=== PATIENT | female | born 1980 | race Native Hawaiian/Other Pacific Islander ===

== ENCOUNTER 2021-07-09 17:30 | Emergency (ER) | payer BC, OTHER ==
[2021-07-09 17:48] VITALS: TEMP 98.9
[2021-07-09 18:00] LABS: Appearance,Urine Clear (Clear); Bilirubin,Urine Negative (Negative); Blood,Urine Negative (Negative); Color,Urine Light Yellow; Glucose,Urine (UA) Negative (Negative); Ketones,Urine Negative (Negative); Leukocyte Esterase,Urine Negative (Negative); Nitrite,Urine Negative (Negative); PH, Urine 6.5 (5.0-8.0); Protein,Urine Negative (Negative); Specific Gravity,Urine 1.002 (1.001-1.035); Urobilinogen,Urine <2.0 mg/dL (<2.0)
[2021-07-09 18:16] LABS: Anisocytosis Slight; Basophils % (A) 0 %; Eosinophils # (A) 0.1 k/uL (0-0.7); Eosinophils % (A) 2 %; HGB 10.1 gm/dL (11.4-16.0); Hypochromasia Moderate; Lymphocytes # (A) 2.3 k/uL (1.0-4.8); Lymphocytes % (A) 35 %; MCH 25.4 pg (25.0-35.0); MCHC 31.5 g/dL (31.0-37.0); MCV 80.7 fL (80.0-100.0); Mean Platelet Volume 7.7; Microcytosis Slight; Monocytes # (A) 0.4 k/uL (0-1.0); Monocytes % (A) 6 %; Neutrophils # (A) 3.7 k/uL (1.3-7.7); Neutrophils % (A) 56 %; Platelet Count 388 k/uL (150-450); RBC 3.97 m/uL (3.80-5.40); RDW 18.4 % (11.5-15.5); WBC 6.7 k/uL (3.8-10.6)
[2021-07-09 18:25] LABS: ALT 7 U/L (4-34); AST 17 U/L (14-36); African American GFR (CKD) >90 (>60 ml/min/1.73 sqM); Albumin 4.7 g/dL (3.5-5.0); Alkaline Phosphatase 71 U/L (38-126); Amylase 71 U/L (30-110); Anion Gap 11 mmol/L; Blood Urea Nitrogen 6 mg/dL (7-17); Calcium 9.5 mg/dL (8.4-10.2); Carbon Dioxide 22 mmol/L (22-30); Chloride 106 mmol/L (98-107); Glucose 109 mg/dL (74-99); Lipase 130 U/L (23-300); Non-African American GFR(CKD) >90 (>60 ml/min/1.73 sqM); Sodium 139 mmol/L (137-145); Total Bilirubin 0.4 mg/dL (0.2-1.3); Total Protein 8.4 g/dL (6.3-8.2)
[2021-07-09] MEDS ORDERED: ONDANSETRON 4 MG/2 ML VIAL IVP STA (19:36)
[2021-07-09] MEDS ORDERED: SODIUM CHLORIDE 0.9% 1,000 ML IV STA (19:36)
[2021-07-09] MEDS ORDERED: ACETAMINOPHEN TAB 325 MG TAB PO STA (19:37)
--- NOTE | 2021-07-09 19:41 | ED ---
General Adult HPI - General Chief complaint: Abdominal Pain Stated complaint: R side pain Time Seen by Provider: 07/09/21 19:02 Source: patient Mode of arrival: ambulatory Limitations: no limitations - History of Present Illness Initial comments: This 41-year-old female with past medical history of tubal ligation presents to the emergency department with right lower quadrant pain x4-5 days. Patient states she has also been experiencing nausea but denies any vomiting or fever. Patient states she does use marijuana daily. Patient states the pain worsens with sitting or putting pressure to the area and lying down does improve the pain. She denies taking any pain medication at home to help with her symptoms. Patient states her pain is 4/10. Patient describes this pain as dull and throbbing. Patient denies any chest pain, shortness of breath, hemoptysis, hematochezia, change in bowel or bladder, headache, dizziness, lightheadedness. - Related Data Home Medications Medication Instructions Recorded Confirmed No Known Home Medications 07/09/21 07/09/21 Allergies Allergy/AdvReac Type Severity Reaction Status Date / Time No Known Allergies Allergy Verified 07/09/21 19:55 Review of Systems ROS Statement: Those systems with pertinent positive or pertinent negative responses have been documented in the HPI. ROS Other: All systems not noted in ROS Statement are negative. Past Medical History Past Medical History: No Reported History History of Any Multi-Drug Resistant Organisms: None Reported Past Surgical History: Tubal Ligation Past Psychological History: No Psychological Hx Reported Smoking Status: Current every day smoker Past Alcohol Use History: None Reported Past Drug Use History: Marijuana General Exam Limitations: no limitations General appearance: alert, in no apparent distress Head exam: Present: atraumatic, normocephalic Eye exam: Present: normal appearance, PERRL, EOMI Pupils: Present: normal accommodation ENT exam: Present: mucous membranes moist Neck exam: Present: full ROM. Absent: tenderness, meningismus Respiratory exam: Present: normal lung sounds bilaterally. Absent: respiratory distress, wheezes, rales, rhonchi, stridor Cardiovascular Exam: Present: regular rate, normal rhythm, normal heart sounds. Absent: systolic murmur, diastolic murmur, rubs, gallop, clicks GI/Abdominal exam: Present: soft, tenderness (Tenderness to right lower quadrant on palpation), normal bowel sounds. Absent: distended, guarding, rebound, rigid Extremities exam: Present: normal inspection, full ROM, normal capillary refill. Absent: tenderness, pedal edema, joint swelling, calf tenderness Back exam: Present: full ROM. Absent: tenderness, CVA tenderness (R), CVA tenderness (L), paraspinal tenderness, vertebral tenderness Neurological exam: Present: alert, oriented X3, CN II-XII intact Psychiatric exam: Present: normal affect, normal mood Skin exam: Present: warm, dry, intact, normal color. Absent: rash Course Vital Signs 07/09/21 07/09/21 07/09/21 17:46 20:19 22:00 Temperature 98.9 F Pulse Rate 77 59 L 59 L Respiratory 20 18 18 Rate Blood Pressure 126/74 132/73 129/68 O2 Sat by Pulse 100 99 100 Oximetry Medical Decision Making - Medical Decision Making This 41-year-old female presents emergency Department with right lower quadrant pain 5 days. Fluids, Tylenol and Toradol given with some minor relief to abdominal pain. Labs all unremarkable. Chest x-ray without any acute abnormalities. CT abdomen and pelvis revealed a 3 mm nonobstructing renal calc ulus within the kidney. Appendix without any acute abnormalities. Discussed cannabinoid hyperemesis syndrome with the patient and advised her to try to stop smoking marijuana to see if her pain improves. Patient requesting to go home and states "I have to work tomorrow and wanted to leave." She refused Haldol or Ativan which I informed help with her abdominal pain. She denied any morphine or Dilaudid. Patient given GI follow-up and told to follow-up if symptoms persist for 5-7 days. Strict return precautions were discussed with the patient and she was told to return if symptoms persist, worsen, or new symptoms arise. She is sent home in stable condition Case discussed with my attending, Dr. Parham. - Lab Data Result diagrams: 07/09/21 18:07 07/09/21 18:07 Lab Results 07/09/21 07/09/21 07/09/21 Range/Units 17:53 18:07 18:07 WBC 6.7 (3.8-10.6) k/uL RBC 3.97 (3.80-5.40) m/uL Hgb 10.1 L (11.4-16.0) gm/dL Hct 32.0 L (34.0-46.0) % MCV 80.7 (80.0-100.0) fL MCH 25.4 (25.0-35.0) pg MCHC 31.5 (31.0-37.0) g/dL RDW 18.4 H (11.5-15.5) % Plt Count 388 (150-450) k/uL MPV 7.7 Neutrophils % 56 % Lymphocytes % 35 % Monocytes % 6 % Eosinophils % 2 % Basophils % 0 % Neutrophils # 3.7 (1.3-7.7) k/uL Lymphocytes # 2.3 (1.0-4.8) k/uL Monocytes # 0.4 (0-1.0) k/uL Eosinophils # 0.1 (0-0.7) k/uL Basophils # 0.0 (0-0.2) k/uL Hypochromasia Moderate Anisocytosis Slight Microcytosis Slight Sodium 139 (137-145) mmol/L Potassium 4.0 (3.5-5.1) mmol/L Chloride 106 (98-107) mmol/L Carbon Dioxide 22 (22-30) mmol/L Anion Gap 11 mmol/L BUN 6 L (7-17) mg/dL Creatinine 0.59 (0.52-1.04) mg/dL Est GFR (CKD-EPI)AfAm >90 (>60 ml/min/1.73 sqM) Est GFR (CKD-EPI)NonAf >90 (>60 ml/min/1.73 sqM) Glucose 109 H (74-99) mg/dL Calcium 9.5 (8.4-10.2) mg/dL Total Bilirubin 0.4 (0.2-1.3) mg/dL AST 17 (14-36) U/L ALT 7 (4-34) U/L Alkaline Phosphatase 71 (38-126) U/L Total Protein 8.4 H (6.3-8.2) g/dL Albumin 4.7 (3.5-5.0) g/dL Amylase 71 (30-110) U/L Lipase 130 (23-300) U/L Urine Color Light Yellow Urine Appearance Clear (Clear) Urine pH 6.5 (5.0-8.0) Ur Specific [place] 1.002 (1.001-1.035) Urine Protein Negative (Negative) Urine Glucose (UA) Negative (Negative) Urine Ketones Negative (Negative) Urine Blood Negative (Negative) Urine Nitrite Negative (Negative) Urine Bilirubin Negative (Negative) Urine Urobilinogen <2.0 (<2.0) mg/dL Ur Leukocyte Esterase Negative (Negative) Disposition Clinical Impression: Abdominal pain, Cannabinoid hyperemesis syndrome Disposition: HOME SELF-CARE Instructions (If sedation given, give patient instructions): Abdominal Pain (ED) Additional Instructions: Please return to the emergency department if any new, worsening, or concerning symptoms arise. Please up with primary care provider in next 24-48 hours. Follow-up with GI symptoms do not resolve in next 5-7 days. Is patient prescribed a controlled substance at d/c from ED?: No Referrals: Yaritza Parham DO [Primary Care Provider] - 1-2 days Hortencia Busby MD [STAFF PHYSICIAN] - 1-2 days Time of Disposition: 22:10
[2021-07-09 20:22] VITALS: PULSE 59; RESP 18
--- NOTE | 2021-07-09 20:48 | XR ---
EXAMINATION TYPE: XR chest 2V DATE OF EXAM: 07/09/2021 COMPARISON: NONE HISTORY: Abdominal pain TECHNIQUE: 2 views FINDINGS: Heart and mediastinum are normal. Lungs are clear. Diaphragm is normal. Bony thorax appears normal. IMPRESSION: Normal chest.
--- NOTE | 2021-07-09 20:55 | CT ---
EXAMINATION TYPE: CT abdomen pelvis w con DATE OF EXAM: 07/09/2021 COMPARISON: None HISTORY: Right sided abdominal pain. CT DLP: 502.2 mGycm Automated exposure control for dose reduction was used. CONTRAST: Performed with IV Contrast, patient injected with 100ml mL of Isovue 300. Images obtained from the diaphragm to the floor the pelvis with IV contrast. Lung bases are clear. There is no pleural effusion. Heart size is normal. There is no pericardial eff usion. Liver spleen stomach pancreas and gallbladder appear intact. Bilateral breasts are not dilated. There is no adrenal mass. Kidneys show satisfactory contrast opacification. There is no hydronephrosi s. There is 3 mm calculus medial right kidney. There is no retroperitoneal adenopathy. Ureters are no ndilated. Delayed images show normal renal excretion. Bladder distends smoothly. Uterus is anteverted . Lumbar vertebrae have normal alignment. There is no compression fracture. Disc spaces are normal. P osterior elements are intact. The bony pelvis is intact. Hip joints appear normal. There is no eviden ce of a pelvic mass. There is no free fluid in the pelvis. Appendix appears normal. Terminal ileum appears normal. There is no mesenteric edema. There is no ascites or free air. There is no evidence for bowel obstruc tion. IMPRESSION: Nonobstructing upper pole right-sided renal calculus. Normal appendix.
[2021-07-09] MEDS ORDERED: KETOROLAC 15 MG/ML 1 ML VIAL IVP STA (21:40)
[2021-07-09 22:01] VITALS: BP 129/68
== END 2021-07-09 22:30 | disposition home or self-care (01) ==
LOC: EC 17:30
DX: R10.31 Right lower quadrant pain (principal); R11.2 Nausea with vomiting, unspecified; F17.200 Nicotine dependence, unspecified, uncomplicated; F12.90 Cannabis use, unspecified, uncomplicated; Z98.51 Tubal ligation status
CPT/HCPCS: 99284; 96374; 96375; 96361; 36415; 80053; 82150; 83690; 85025; 81003; 71046; 74177; J2405; J1885; Q9967